=== PATIENT | female | born 1970 | race Two or more races ===

== ENCOUNTER 2017-02-25 06:55 | Inpatient (IN) | payer OTHER ==
[~2017-02-25] VITALS: Ht 147.3 cm; Wt 50.0 kg
[2017-02-25] VITALS (23 sets, daily range): BP systolic 101–136; BP diastolic 53–75; PULSE 60–93; RESP 16–20; Ht 147.3 cm; Wt 50.0 kg
[2017-02-25] MEDS ORDERED: VANCOMYCIN 1 GM (PMX) 250 ML IVPB ONE (07:00)
[2017-02-25] MEDS ORDERED: CEFAZOLIN 2 GM/50 ML (PMX) 50 ML IVPB ONE (07:00)
[2017-02-25] MEDS ORDERED: PROPOFOL 200 MG INJ ONE (07:00)
[2017-02-25] MEDS ORDERED: LACTATED RINGER'S 1,000 ML IV* SCH (07:00)
[2017-02-25] MEDS ORDERED: CLINDAMYCIN 300 MG/D5W (PMX) 50 ML IVPB ONE (07:00)
[2017-02-25] MEDS ORDERED: SOD CHLORIDE 0.9% 1,000 ML IV SCH (07:00)
[2017-02-25] MEDS ORDERED: AMPICILLIN/SULB 3 GM/NS (PMX) 100 ML IVPB ONE (07:00)
[2017-02-25] MEDS ORDERED: metroNIDAZOLE 500 MG/NS (PMX) 100 ML IVPB ONE (07:00)
[2017-02-25] MEDS ORDERED: CIPROFLOXACIN 400MG/D5W 200 ML IVPB ONE (07:00)
[2017-02-25] MEDS ORDERED: CEFAZOLIN 1 GM/50 ML (PMX) 50 ML IVPB ONE (07:00)
[2017-02-25] MEDS ORDERED: ACETAMINOPHEN 1000MG/100ML IV 100 ML ONE (08:15)
[2017-02-25] MEDS ORDERED: LIDOCAINE 100 MG SYRINGE ONE (08:15)
[2017-02-25] MEDS ORDERED: ONDANSETRON 4 MG INJ ONE (08:16)
[2017-02-25] MEDS ORDERED: FAMOTIDINE 20 MG INJ ONE (08:16)
[2017-02-25] MEDS ORDERED: ROCURONIUM 50 MG INJ ONE (08:16)
[2017-02-25] MEDS ORDERED: DEXAMETHASONE 4 MG/ML 1 ML INJ ONE (08:16)
[2017-02-25] MEDS ORDERED: MIDAZOLAM 1 MG/ML 2 ML INJ ONE (08:16)
[2017-02-25] MEDS ORDERED: HYDROmorphONE 2 MG/ML SYG ONE (08:16)
[2017-02-25] MEDS ORDERED: POLYMYXIN/BACITRACIN 1L IRRIG ONE (09:05)
[2017-02-25] MEDS ORDERED: VANCOMYCIN 1 GM INJ ONE (09:05)
[2017-02-25] MEDS ORDERED: SUGAMMADEX SODIUM 200 MG/2 ML VIAL IV ONE (10:03)
[2017-02-25] MEDS ORDERED: MEPERIDINE 25 MG INJ IV PRN (10:30)
[2017-02-25] MEDS ORDERED: HYDROmorphONE (0.2 MG/ML) 10ML SYG IV PRN ×3 (10:30)
[2017-02-25] MEDS ORDERED: ONDANSETRON 4 MG INJ IV PRN ×2 (10:30→15:00)
[2017-02-25] MEDS ORDERED: METOCLOPRAMIDE 10 MG INJ IV PRN (10:30)
--- NOTE | 2017-02-25 11:08 | OPR ---
Date/Time of Note Date/Time of Note DATE: 02/25/17 TIME: 11:04 Operative Report Preoperative Diagnosis Large ventral hernia Postoperative Diagnosis Same Operation/Procedure Performed Abdominal exploration lysis of adhesions and repair of ventral hernia Surgeon: CHACE LOVING MD assistant store manager: MARTIN EASLEY MD Anesthesia: general Estimated Blood Loss: 10 - 50 ml's Specimens Hernia sac CHACE LOVING MD Feb 25, 2017 11:08
[2017-02-25] MEDS ORDERED: HYDROmorphONE 1 MG/ML SYG IV SCH ×2 (12:30→14:00)
[2017-02-25] MEDS: IBUPROFEN 400 MG TAB PO PRN (12:30)
--- NOTE | 2017-02-25 12:56 | OPR ---
DATE OF OPERATION: 02/25/2017 PREOPERATIVE DIAGNOSIS: Ventral hernia. POSTOPERATIVE DIAGNOSIS: Ventral hernia. PROCEDURES: 1. Exploratory laparotomy. 2. Ventral herniorrhaphy. 3. Local adjacent tissue transfer. ANESTHESIA: General. ANESTHESIOLOGIST: Nurse infantry officer, . SURGEON: Barry Manning MD AUTO PARTS COUNTER PERSON: Dr. Colon. INDICATIONS FOR PROCEDURE: Patient is a 46-year-old female who previously had undergone a laparoscopic cholecystectomy at another institution. She developed a very large supraumbilical hernia at the presumed trocar site. CT scan demonstrated that it contained portions of the transverse colon. She was counseled as to risks versus benefits of repair. She consented and was scheduled for surgery. OPERATIVE PROCEDURE: Patient was brought to operating room, placed under general endotracheal tube anesthesia. The abdomen was prepped and draped in the usual sterile fashion. A midline incision was made directly over the hernia from a point approximately 4 cm above the umbilicus, around the left side of the umbilicus to a point approximately 2 cm below the umbilicus. Subcutaneous tissue was dissected with cautery. A large hernia sac was identified. The sac was meticulously dissected down to its base with the abdominal wall fascia. The sac was opened. Incarcerated bowel was easily returned to the abdominal domain. The sac was then transected and sent for permanent pathologic analysis. Dr. Manning inspected the defect and deemed suitable for primary repair. It was repaired in transverse fashion using 0 looped Prolene sutures. The dermis of the umbilicus was then tacked to the abdominal wall, also with the Prolene suture to recreate an inverted umbilicus. The wound was irrigated. There was a lot of tension on the wound. Therefore, Dr. Manning made the decision to mobilize skin both on the left and right side as well as superiorly and inferiorly to create skin flaps. The flaps were then rotated together and held in place with towel clips, and final approximation of the skin incision took place with 2-0 nylon sutures in vertical mattress fashion. Patient tolerated the procedure well. The estimated blood loss was 20 mL. There were no complications and the patient was transported in stable condition to the recovery room. Dictated By: Barry Manning MD /shani/ec /Document#: [id number]
[2017-02-25] MEDS: HYDROmorphONE 0.2 MG/ML PCA IV SCH ×2 (15:26→21:49)
[2017-02-25] MEDS: SOD CHLORIDE 0.9% 1,000 ML IV SCH (18:48)
[2017-02-25] MEDS ORDERED: DIPHENHYDRAMINE 25 MG CAP PO PRN (19:00)
[2017-02-26] MEDS: SOD CHLORIDE 0.9% 1,000 ML IV SCH ×2 (02:18→17:13)
[2017-02-26] MEDS: HYDROmorphONE 0.2 MG/ML PCA IV SCH ×2 (06:06→16:18)
[2017-02-26] MEDS: IBUPROFEN 400 MG TAB PO PRN (08:56)
[2017-02-26 08:57] VITALS: BP 103/58; RESP 16
--- NOTE | 2017-02-26 12:43 | HP ---
Date/Time of Note Date/Time of Note DATE: 02/26/17 TIME: 12:42 Assessment/Plan VTE Prophylaxis VTE Prophylaxis Intervention: other Lines/Catheters IV [facility] Peripheral IV Urinary Cath still in place: No Assessment/Plan Chief Complaint/Hosp Course 1) ventral hernia - s/p repair 2) hypertension - monitor Problems: HPI/ROS Admit Date/Time Admit Date/Time Feb 25, 2017 at 13:53 Hx of Present Illness Patient with hypertension comes in with vental hernia. Patient underwent repair of hernia and is now post op. PMH/Family/Social Past Medical History Medical History: hypertension Past Surgical History Past Surgical Hx: no surgical history Social History Smoking Status: Never smoker Exam/Review of Systems Vital Signs Vitals Vital Signs Date Time Temp Pulse Resp B/P Pulse Ox O2 Delivery O2 Flow Rate FiO2 02/26/17 08:57 100.0 81 16 103/58 98 02/25/17 17:45 Room Air Intake and Output 02/25/17 02/25/17 02/26/17 15:00 23:00 07:00 Intake Total 1020 ml 500 ml 1365 ml Output Total 10 ml 450 ml 450 ml Balance 1010 ml 50 ml 915 ml Exam Constitutional: well developed Head: atraumatic, normocephalic Neck: supple Respiratory: clear to auscultation Cardiovascular: regular rate and rhythm Gastrointestinal: non-tender, soft Extremities: normal pulses Medications Medications Current Medications Ibuprofen (Motrin) 400 mg Q6H PRN PO PAIN OR TEMP ABOVE 38C Last administered on 02/26/17 08:56; Admin Dose 400 MG; Start 02/25/17 at 12:30 Hydromorphone HCl (Dilaudid AIRCRAFT INSPECTION RECORD CLERK) 0.5 MG/HR CONTINUOUS RATE ... Q4PCA IV Last administered on 02/26/17 06:06; Admin Dose 6 MG; Start 02/25/17 at 15:00 Ondansetron HCl 4 mg 4 mg Q4H PRN IV NAUSEA AND/OR VOMITING Last administered on 02/25/17 21:55; Admin Dose 4 MG; Start 02/25/17 at 15:00 Sodium Chloride (NS) 1,000 ml @ 75 mls/hr [id number] IV Last administered on 02:18; Admin Dose 75 MLS/HR; Start 02/25/17 at 17:30 Diphenhydramine HCl (Benadryl) 25 mg Q6H PRN PO ITCHING Last administered on t 18:59; Admin Dose 25 MG; Start 02/25/17 at 19:00 MERVIN BRIGGS Feb 26, 2017 12:43
[2017-02-26 14:33] VITALS: BP 106/63; RESP 19
--- NOTE | 2017-02-26 15:07 | PN ---
Date/Time of Note Date/Time of Note DATE: 02/26/17 TIME: 15:02 Assessment/Plan VTE Prophylaxis VTE Prophylaxis Intervention: SCD's Lines/Catheters IV Catheter Type (from Nrs): Peripheral IV Urinary Cath still in place: No Assessment/Plan Assessment/Plan 46-year-old female postop day #1 status post laparotomy repair of the ventral hernia. Status post operation patient has been in a lot of pain so much that required Dilaudid LICENSED INVESTMENT SALES ASSISTANT. Barely has been out of bed. Patient states that the patient has peptic ulcer. Plan,: We will start patient on Toradol 30 mg IV every 6 hours [id number] for 48 hours. Also will give Protonix 40 mg p.o. every 12 hours. I will check a KUB tomorrow morning to see the status of the bowels. Subjective 24 Hr Interval Summary Free Text/Dictation Complains of abdominal pain and tightness. No nausea no vomiting. Status post laparotomy repair of the ventral hernia. Exam/Review of Systems Vital Signs Vitals Vital Signs Date Time Temp Pulse Resp B/P Pulse Ox O2 Delivery O2 Flow Rate FiO2 02/26/17 14:33 98.0 75 19 106/63 98 02/25/17 17:45 Room Air Intake and Output 02/25/17 02/25/17 02/26/17 15:00 23:00 07:00 Intake Total 1020 ml 500 ml 1365 ml Output Total 10 ml 450 ml 450 ml Balance 1010 ml 50 ml 915 ml Exam Postop day #1. Alert awake oriented 3. Complains of too much abdominal pain. She is on LICENSED INVESTMENT SALES ASSISTANT Dilaudid. No BMP has passed a minimal amount of flatus. Abdomen is slightly distended tender at the site of the operation. Bowel sounds 2+/4+. Legs no calf tenderness. Results Results 24 hrs Laboratory Tests Test 02/26/17 05:53 Lab Scanned Report LAB Medications Medications Current Medications Ibuprofen (Motrin) 400 mg Q6H PRN PO PAIN OR TEMP ABOVE 38C Last administered on 02/26/17 08:56; Admin Dose 400 MG; Start 02/25/17 at 12:30 Hydromorphone HCl (Dilaudid LICENSED INVESTMENT SALES ASSISTANT) 0.0 MG/HR CONTINUOUS RATE ... Q4PCA IV Last administered on 02/26/17 06:06; Admin Dose 6 MG; Start 02/25/17 at 15:00 Ondansetron HCl 4 mg 4 mg Q4H PRN IV NAUSEA AND/OR VOMITING Last administered on 02/25/17 21:55; Admin Dose 4 MG; Start 02/25/17 at 15:00 Sodium Chloride (NS) 1,000 ml @ 75 mls/hr [id number] IV Last administered on 02:18; Admin Dose 75 MLS/HR; Start 02/25/17 at 17:30 Diphenhydramine HCl (Benadryl) 25 mg Q6H PRN PO ITCHING Last administered on 18:59; Admin Dose 25 MG; Start 02/25/17 at 19:00 MARTIN EASLEY MD Feb 26, 2017 15:07
[2017-02-26] MEDS ORDERED: IBUPROFEN 400 MG TAB PO SCH (16:30)
[2017-02-26] MEDS ORDERED: KETOROLAC 30 MG INJ IV SCH (16:30)
[2017-02-26] MEDS: PANTOPRAZOLE 40 MG INJ IV SCH (17:12)
[2017-02-26] MEDS: KETOROLAC 30 MG INJ IV SCH ×2 (17:12→23:34)
[2017-02-26 20:40] VITALS: BP 118/61; RESP 20
[2017-02-27 02:28] VITALS: BP 124/69; RESP 18
[2017-02-27 04:45] VITALS: RESP 18
[2017-02-27] MEDS: SOD CHLORIDE 0.9% 1,000 ML IV SCH ×2 (05:49→22:50)
[2017-02-27] MEDS: PANTOPRAZOLE 40 MG INJ IV SCH ×2 (05:49→17:48)
[2017-02-27] MEDS: KETOROLAC 30 MG INJ IV SCH ×2 (05:52→12:28)
[2017-02-27 07:00] VITALS: BP 112/67; RESP 18
--- NOTE | 2017-02-27 10:11 | PN ---
Date/Time of Note Date/Time of Note DATE: 02/27/17 TIME: 10:10 Assessment/Plan VTE Prophylaxis VTE Prophylaxis Intervention: other Lines/Catheters IV Catheter Type (from Nrs): Peripheral IV Urinary Cath still in place: No Assessment/Plan Chief Complaint/Hosp Course 1) ventral hernia - s/p repair 2) hypertension - monitor Problems: Subjective 24 Hr Interval Summary Free Text/Dictation Patient is still complaining of fair amount of pain in right side of abdomen Exam/Review of Systems Vital Signs Vitals Vital Signs Date Time Temp Pulse Resp B/P Pulse Ox O2 Delivery O2 Flow Rate FiO2 02/27/17 07:00 98.6 75 18 112/67 96 02/27/17 04:45 Room Air Intake and Output 02/26/17 02/26/17 02/27/17 15:00 23:00 07:00 Intake Total 400 ml 1400 ml Output Total 800 ml Balance -400 ml 1400 ml Exam Constitutional: well developed Head: atraumatic, normocephalic Neck: supple Respiratory: clear to auscultation Cardiovascular: regular rate and rhythm Gastrointestinal: soft, tender Extremities: normal pulses Medications Medications Current Medications Hydromorphone HCl (Dilaudid MARKETING ACCOUNT EXECUTIVE) 0.0 MG/HR CONTINUOUS RATE ... Q4PCA IV Last administered on 02/26/17 16:18; Admin Dose 6 MG; Start 02/25/17 at 15:00 Ondansetron HCl 4 mg 4 mg Q4H PRN IV NAUSEA AND/OR VOMITING Last administered on 02/25/17 21:55; Admin Dose 4 MG; Start 02/25/17 at 15:00 Sodium Chloride (NS) 1,000 ml @ 75 mls/hr [id number] IV Last administered on 05:49; Admin Dose 75 MLS/HR; Start 02/25/17 at 17:30 Diphenhydramine HCl (Benadryl) 25 mg Q6H PRN PO ITCHING Last administered on 18:59; Admin Dose 25 MG; Start 02/25/17 at 19:00 Pantoprazole (Protonix Iv) 40 mg BID@06,18 IV Last administered on 02/27/17 05: 49; Admin Dose 40 MG; Start 02/26/17 at 18:00 Ketorolac Tromethamine (Toradol) 30 mg Q6 IV Last administered on 02/27/17t 05: 52; Admin Dose 30 MG; Start 02/26/17 at 17:00; Stop 03/01/17 at 16:59 MERVIN BRIGGS Feb 27, 2017 10:11
--- NOTE | 2017-02-27 11:28 | RADRPT ---
PROCEDURE: Abdominal radiograph. CLINICAL INDICATION: Postoperative distension. COMPARISON: None relevant listed . TECHNIQUE: Supine portable AP abdomen x-ray. FINDINGS: The visualized lung bases are clear. No distended loops of bowel or fluid levels. There is a nonobstructive bowel pattern. No suspicious calcifications. No suspicious bone abnormality. IMPRESSION: No bowel obstruction identified. RPTAT: PP Physician Rolando Date Time Electronically viewed and signed by Physician Rolando on 02/27/2017 11:27 LG/
--- NOTE | 2017-02-27 15:08 | PN ---
Date/Time of Note Date/Time of Note DATE: 02/27/17 TIME: 15:02 Assessment/Plan VTE Prophylaxis VTE Prophylaxis Intervention: ambulation Lines/Catheters IV [facility]ter Type (from [facility]): Peripheral IV Urinary Cath still in place: No Assessment/Plan Assessment/Plan 46-year-old female status post repair of the ventral incisional hernia 2 days ago. Patient continues to complain of left flank pain as she has had before operation. Also states that she has had EGD done 2 years ago and she was told that she has stomach ulcer. She states that has had left flank pain for about a year or so. No investigation has been done. Now it is tender on pressure in the left flank area. Plan: We will get a CBC and CMP tomorrow the urinalysis. We will give the patient Fleet Enema to clear her rectum. We will get a CT scan of abdomen and pelvis with Gastrografin tomorrow. We will continue patient on proton pump inhibitors. Subjective 24 Hr Interval Summary Free Text/Dictation Postop day #2. Continues to complain of left flank pain. States that she has had left flank pain for about a year before this operation. Seen the pain is the same. She denies constipation or diarrhea. She denies vomiting. Question of nausea. Has been out of bed to urinate. No bowel movement in the hospital. Exam/Review of Systems Vital Signs Vitals Vital Signs Date Time Temp Pulse Resp B/P Pulse Ox O2 Delivery O2 Flow Rate FiO2 02/27/17 13:00 18 02/27/17 07:00 98.6 75 112/67 96 02/27/17 04:45 Room Air Intake and Output 02/26/17 02/26/17 02/27/17 15:00 23:00 07:00 Intake Total 400 ml 1400 ml Output Total 800 ml Balance -400 ml 1400 ml Exam Postop day #2. Alert awake oriented 3. Difficulty ambulating. Back and forth and up and down with the help of the family is doing that. Vital sign is stable. Heart regular lungs clear. Abdomen is mildly distended. Bowel sound is hypoactive. Tenderness on left flank upon deep pressure. KUB shows a couple of the small bowel loops in the left upper quadrant. KUB shows a stone in the rectum. Medications Medications Current Medications Hydromorphone HCl (Dilaudid ADVANCED NURSING PROFESSOR) 0.0 MG/HR CONTINUOUS RATE ... Q4PCA IV Last administered on 02/26/17 16:18; Admin Dose 6 MG; Start 02/25/17 at 15:00 Ondansetron HCl 4 mg 4 mg Q4H PRN IV NAUSEA AND/OR VOMITING Last administered on 02/25/17 21:55; Admin Dose 4 MG; Start 02/25/17 at 15:00 Sodium Chloride (NS) 1,000 ml @ 75 mls/hr [id number] IV Last administered on 05:49; Admin Dose 75 MLS/HR; Start 02/25/17 at 17:30 Diphenhydramine HCl (Benadryl) 25 mg Q6H PRN PO ITCHING Last administered on 18:59; Admin Dose 25 MG; Start 02/25/17 at 19:00 Pantoprazole (Protonix Iv) 40 mg BID@06,18 IV Last administered on 02/27/17 05: 49; Admin Dose 40 MG; Start 02/26/17 at 18:00 Ketorolac Tromethamine (Toradol) 30 mg Q6 IV Last administered on 02/27/17 12: 28; Admin Dose 30 MG; Start 02/26/17 at 17:00; Stop 03/01/17 at 16:59 MARTIN EASLEY MD Feb 27, 2017 15:08
[2017-02-27] MEDS ORDERED: NA PHOSPHATE/BIPHOS 133 ML ENEMA PR ONE (15:30)
[2017-02-27] MEDS ORDERED: IOHEXOL 14.3 MG(I)/ML (ADULT) BTL PO ONE (15:30)
[2017-02-27 19:11] VITALS: BP 129/71; RESP 22
[2017-02-27 19:24] LABS: ADD UMIC YES; UR ASCORBIC ACID NEGATIVE (NEGATIVE); UR BACTERIA FEW /HPF (NONE SEEN); UR BILIRUBIN (Dip) NEGATIVE (NEGATIVE); UR BLOOD (Dip) NEGATIVE (NEGATIVE); UR CLARITY CLEAR (CLEAR); UR COLOR STRAW (YELLOW); UR GLUCOSE (Dip) NEGATIVE (NEGATIVE); UR KETONES (Dip) NEGATIVE (NEGATIVE); UR LEUKOCYTE ESTERASE (Dip) 3+ Leu/ul (NEGATIVE); UR NITRITE (Dip) NEGATIVE (NEGATIVE); UR RBC 1 /HPF (0-5); UR SPECIFIC GRAVITY (Dip) 1.004 (1.003-1.030); UR TOTAL PROTEIN (Dip) NEGATIVE (NEGATIVE); UR UROBILINOGEN (Dip) NEGATIVE (NEGATIVE)
[2017-02-27] MEDS: HYDROmorphONE 0.2 MG/ML PCA IV SCH (20:19)
[2017-02-28 02:45] VITALS: BP 121/63; RESP 22
[2017-02-28 05:34] LABS: BASOPHIL # 0.1 10^3/ul (0.0-0.1); BASOPHILS % 0.6 % (0.0-2.0); EOSINOPHILS # 0.1 10^3/ul (0.0-0.5); EOSINOPHILS % 1.4 % (0.0-7.0); HEMOGLOBIN 13.2 g/dl (12.0-16.0); LYMPHOCYTES # 2.6 10^3/ul (0.8-2.9); LYMPHOCYTES % 33.1 % (15.0-51.0); MEAN CORPUSCULAR HEMOGLOBIN 31.8 pg (29.0-33.0); MEAN CORPUSCULAR HGB CONC 34.7 g/dl (32.0-37.0); MEAN CORPUSCULAR VOLUME 91.6 fl (82.0-101.0); MEAN PLATELET VOLUME 10.9 fl (7.4-10.4); MONOCYTE # 0.8 10^3/ul (0.3-0.9); MONOCYTES % 10.1 % (0.0-11.0); NEUTROPHIL # 4.3 10^3/ul (1.6-7.5); NEUTROPHILS % 54.5 % (39.0-77.0); PLATELET COUNT 182 10^3/UL (140-415); RED BLOOD COUNT 4.15 10^6/ul (4.20-5.40); WHITE BLOOD COUNT 7.8 10^3/ul (4.8-10.8)
[2017-02-28] MEDS: PANTOPRAZOLE 40 MG INJ IV SCH (05:39)
[2017-02-28 06:46] LABS: ALBUMIN 3.2 g/dl (3.3-4.9); BILIRUBIN,INDIRECT 0.4 mg/dl (0-1.1); BILIRUBIN,TOTAL 0.4 mg/dl (0.2-1.3); CALCIUM 8.5 mg/dl (8.4-10.2); CREATININE 0.65 mg/dl (0.44-1.00); POTASSIUM 4.3 mmol/L (3.5-5.1); TOTAL PROTEIN 6.4 g/dl (6.1-8.1)
[2017-02-28] MEDS: SOD CHLORIDE 0.9% 1,000 ML IV SCH ×3 (06:57→21:15)
[2017-02-28 08:00] VITALS: BP 111/64; RESP 16
--- NOTE | 2017-02-28 12:08 | PN ---
Date/Time of Note Date/Time of Note DATE: 02/28/17 TIME: 12:07 Assessment/Plan VTE Prophylaxis VTE Prophylaxis Intervention: other Lines/Catheters IV Catheter Type (from Nrs): Peripheral IV Urinary Cath still in place: No Assessment/Plan Chief Complaint/Hosp Course 1) ventral hernia - s/p repair 2) hypertension - monitor Problems: Subjective 24 Hr Interval Summary Free Text/Dictation Patient is still having a considerable amount of pain, still on MASCARA MOLDER Exam/Review of Systems Vital Signs Vitals Vital Signs Date Time Temp Pulse Resp B/P Pulse Ox O2 Delivery O2 Flow Rate FiO2 02/28/17 09:00 18 02/28/17 08:00 98.4 71 111/64 97 02/27/17 04:45 Room Air Intake and Output 02/27/17 02/27/17 02/28/17 14:59 22:59 06:59 Intake Total 2125 ml 1560 ml Output Total 1200 ml 1150 ml Balance 925 ml 410 ml Exam Constitutional: well developed Head: atraumatic, normocephalic Neck: supple Respiratory: clear to auscultation Cardiovascular: regular rate and rhythm Gastrointestinal: soft, tender Extremities: normal pulses Results Result Diagram: 02/28/17 0449 02/28/17 0449 Results 24 hrs Laboratory Tests Test 02/27/17 17:09 02/28/17 04:49 Urine Color STRAW Urine Clarity CLEAR Urine pH 8.0 Urine Specific Brogan 1.004 Urine Ketones NEGATIVE Urine Nitrite NEGATIVE Urine Bilirubin NEGATIVE Urine Urobilinogen NEGATIVE Urine Leukocyte Esterase 3+ H Urine Microscopic RBC 1 Urine Microscopic WBC 5 Urine Bacteria FEW A Urine Hemoglobin NEGATIVE Urine Glucose NEGATIVE Urine Total Protein NEGATIVE White Blood Count 7.8 Red Blood Count 4.15 L Hemoglobin 13.2 Hematocrit 38.0 Mean Corpuscular Volume 91.6 Mean Corpuscular Hemoglobin 31.8 Mean Corpuscular Hemoglobin Concent 34.7 Red Cell Distribution Width 12.0 Platelet Count 182 Mean Platelet Volume 10.9 H Neutrophils % 54.5 Lymphocytes % 33.1 Monocytes % 10.1 Eosinophils % 1.4 Basophils % 0.6 Nucleated Red Blood Cells % 0.0 Neutrophils # 4.3 Lymphocytes # 2.6 Monocytes # 0.8 Eosinophils # 0.1 Basophils # 0.1 Nucleated Red Blood Cells # 0.0 Sodium Level 140 Potassium Level 4.3 Chloride Level 100 Carbon Dioxide Level 28 Anion Gap 16 Blood Urea Nitrogen 6 L Creatinine 0.65 Glucose Level 81 Calcium Level 8.5 Total Bilirubin 0.4 Direct Bilirubin 0.00 Indirect Bilirubin 0.4 Aspartate Amino Transf (AST/SGOT) 40 Alanine Aminotransferase (ALT/SGPT) 60 Alkaline Phosphatase 74 Total Protein 6.4 Albumin 3.2 L Globulin 3.20 Albumin/Globulin Ratio 1.00 Medications Medications Current Medications Hydromorphone HCl (Dilaudid MASCARA MOLDER) 0.0 MG/HR CONTINUOUS RATE ... Q4PCA IV Last administered on 02/27/17 20:19; Admin Dose 6 MG; Start 02/25/17 at 15:00 Ondansetron HCl 4 mg 4 mg Q4H PRN IV NAUSEA AND/OR VOMITING Last administered on 02/25/17 21:55; Admin Dose 4 MG; Start 02/25/17 at 15:00 Sodium Chloride (NS) 1,000 ml @ 75 mls/hr [id number] IV Last administered on 06:57; Admin Dose 75 MLS/HR; Start 02/25/17 at 17:30 Diphenhydramine HCl (Benadryl) 25 mg Q6H PRN PO ITCHING Last administered on 18:59; Admin Dose 25 MG; Start 02/25/17 at 19:00 Pantoprazole (Protonix Iv) 40 mg BID@06,18 IV Last administered on 02/28/17 05: 39; Admin Dose 40 MG; Start 02/26/17 at 18:00 MERVIN BRIGGS Feb 28, 2017 12:08
[2017-02-28] MEDS ORDERED: traMADol 50 MG TAB PO PRN (13:00)
[2017-02-28] MEDS ORDERED: HYDROCODONE/APAP (5/325) TAB PO PRN ×2 (13:00)
[2017-02-28] MEDS: traMADol 50 MG TAB PO PRN ×2 (13:33→21:34)
[2017-02-28 14:00] VITALS: BP 140/71; RESP 18
[2017-02-28] MEDS: PANTOPRAZOLE (EC) 40 MG TAB PO SCH (17:30)
--- NOTE | 2017-02-28 18:51 | PN ---
Date/Time of Note Date/Time of Note DATE: 02/28/17 TIME: 18:43 Assessment/Plan VTE Prophylaxis VTE Prophylaxis Intervention: ambulation Lines/Catheters IV [facility] (from [facility]): Peripheral IV Urinary Cath still in place: No Assessment/Plan Assessment/Plan 46-year-old female status post laparotomy and repair of the ventral incisional hernia without mesh. First postop day patient's suffering of a lot of pain requiring narcotics the TREE CLIMBER and also on the second day continue TREE CLIMBER. Last night had a bowel movement today feels slightly better. Plan: I am planning to decrease the frequency of the TREE CLIMBER and decrease the amount of each dose. I will start patient on tramadol 50 mg p.o. every 8 hours. The planning to possibly discharge her home on Saturday and noted most Saturday. Subjective 24 Hr Interval Summary Free Text/Dictation Surgical follow-up by Dr. Easley. Postop day #3. Status post laparotomy and repair of ventral incisional hernia by Dr. Basurto. Apparently patient had a bowel movement last night. Patient states that the pain is a slightly better today. Has been out of bed and walked around. I Had ordered a CT scan of the abdomen and pelvis with Gastrografin but apparently patient has refused to take the fluid for contrast p.o. for the CT scan patient wants to see Dr. Basurto. Exam/Review of Systems Vital Signs Vitals Vital Signs Date Time Temp Pulse Resp B/P Pulse Ox O2 Delivery O2 Flow Rate FiO2 02/28/17 14:00 97.7 72 18 140/71 93 02/27/17 04:45 Room Air Intake and Output 02/27/17 02/27/17 02/28/17 15:00 23:00 07:00 Intake Total 2125 ml 1560 ml Output Total 1200 ml 1150 ml Balance 925 ml 410 ml Exam Patient is alert awake oriented 3 sitting down on the chair. Vital sign is stable no fever no nausea no vomiting. I had the patient lay down on the bed and examined the patient abdomen is not distended is soft bowel sound is normal. Mild to moderate tenderness on pressure. No calf tenderness. Results Result Diagram: 02/28/17 0449 02/28/17 0449 Results 24 hrs Laboratory Tests Test 02/28/17 04:49 White Blood Count 7.8 Red Blood Count 4.15 L Hemoglobin 13.2 Hematocrit 38.0 Mean Corpuscular Volume 91.6 Mean Corpuscular Hemoglobin 31.8 Mean Corpuscular Hemoglobin Concent 34.7 Red Cell Distribution Width 12.0 Platelet Count 182 Mean Platelet Volume 10.9 H Neutrophils % 54.5 Lymphocytes % 33.1 Monocytes % 10.1 Eosinophils % 1.4 Basophils % 0.6 Nucleated Red Blood Cells % 0.0 Neutrophils # 4.3 Lymphocytes # 2.6 Monocytes # 0.8 Eosinophils # 0.1 Basophils # 0.1 Nucleated Red Blood Cells # 0.0 Sodium Level 140 Potassium Level 4.3 Chloride Level 100 Carbon Dioxide Level 28 Anion Gap 16 Blood Urea Nitrogen 6 L Creatinine 0.65 Glucose Level 81 Calcium Level 8.5 Total Bilirubin 0.4 Direct Bilirubin 0.00 Indirect Bilirubin 0.4 Aspartate Amino Transf (AST/SGOT) 40 Alanine Aminotransferase (ALT/SGPT) 60 Alkaline Phosphatase 74 Total Protein 6.4 Albumin 3.2 L Globulin 3.20 Albumin/Globulin Ratio 1.00 Medications Medications Current Medications Hydromorphone HCl (Dilaudid TREE CLIMBER) 0.0 MG/HR CONTINUOUS RATE ... Q4PCA IV Last administered on 02/27/17 20:19; Admin Dose 6 MG; Start 02/25/17 at 15:00 Ondansetron HCl 4 mg 4 mg Q4H PRN IV NAUSEA AND/OR VOMITING Last administered on 02/25/17 21:55; Admin Dose 4 MG; Start 02/25/17 at 15:00 Sodium Chloride (NS) 1,000 ml @ 75 mls/hr [id number] IV Last administered on 06:57; Admin Dose 75 MLS/HR; Start 02/25/17 at 17:30 Diphenhydramine HCl (Benadryl) 25 mg Q6H PRN PO ITCHING Last administered on 18:59; Admin Dose 25 MG; Start 02/25/17 at 19:00 Acetaminophen/ Hydrocodone Bitart ([place] (5/325)) 1 tab Q4H PRN PO PAIN LEVEL 1 -5; Start 02/28/17 at 13:00 Acetaminophen/ Hydrocodone Bitart ([place] (5/325)) 2 tab Q4H PRN PO PAIN LEVEL 6 -10; Start 02/28/17 at 13:00 Tramadol HCl (Ultram) 50 mg Q6H PRN PO PAIN Last administered on 02/28/17 13:33 ; Admin Dose 50 MG; Start 02/28/17 at 13:00 Pantoprazole (Protonix Tab) 40 mg BID@,18 PO Last administered on 02/28/17 17 :30; Admin Dose 40 MG; Start 02/28/17 at 18:00 MARTIN EASLEY MD Feb 28, 2017 18:50
[2017-02-28 20:27] VITALS: BP 132/79; RESP 18
[2017-03-01 00:51] VITALS: BP 119/65; RESP 19
[2017-03-01] MEDS: PANTOPRAZOLE (EC) 40 MG TAB PO SCH (06:17)
[2017-03-01] MEDS: traMADol 50 MG TAB PO PRN ×2 (06:19→12:31)
[2017-03-01 07:00] VITALS: BP 111/64; RESP 20
[2017-03-01] MEDS: SOD CHLORIDE 0.9% 1,000 ML IV SCH (11:50)
[2017-03-01 14:00] VITALS: BP 119/65; RESP 20
--- NOTE | 2017-03-01 14:06 | DS ---
Date/Time of Note Date/Time of Note DATE: 03/01/17 TIME: 14:05 Discharge Summary Admission/Discharge Info Admit Date/Time Feb 25, 2017 at 13:53 Discharge Date/Time 03/01/17 Patient Condition: Fair Consults surgery Procedures hernia repair Hx of Present Illness Patient with hypertension comes in with vental hernia. Patient underwent repair of hernia and is now post op. Hospital Course Patient came in with a ventral hernia. She underwent repair. Patient slowly improved and when stable was sent home. 1) ventral hernia - s/p repair 2) hypertension - monitor Home Meds No Active Prescriptions or Reported Meds Primary Care Provider Not On Staff Doctor MERVIN BRIGGS Mar 01, 2017 14:06
--- NOTE | 2017-03-01 14:16 | PN ---
Date/Time of Note Date/Time of Note DATE: 03/01/17 TIME: 14:03 Assessment/Plan VTE Prophylaxis VTE Prophylaxis Intervention: ambulation Lines/Catheters IV Catheter Type (from Nrsg): Peripheral IV Urinary Cath still in place: No Assessment/Plan Assessment/Plan POD#4 S/P ventral hernia repair pt has been claiming too much abdominap pain, to some extent was relievd by passin gas and BM. otherwise pt stable. to discharge her today on ULTRUM 50 mg po q 6hr. F.U. by Dr. Manning in his office Subjective 24 Hr Interval Summary Free Text/Dictation Pod#4. states that todat has much more pain in right up. quadrant comparing to yesterday. has past a lot of flatus but no B.M. today. has not used crab catcher .but ULTRUM, q 6hr. Exam/Review of Systems Vital Signs Vitals Vital Signs Date Time Temp Pulse Resp B/P Pulse Ox O2 Delivery O2 Flow Rate FiO2 03/01/17 09:00 18 03/01/17 07:00 98.9 63 111/64 97 02/27/17 04:45 Room Air Intake and Output 02/28/17 02/28/17 03/01/17 15:00 23:00 07:00 Intake Total 1785 ml 1301 ml Balance 1785 ml 1301 ml Exam NO fever, no N., No Vomiting, positive Flatus Abdomen is soft, but moderatly distended with gas. bowel sounds normal Results Result Diagram: 02/28/17 0449 02/28/17 0449 Medications Medications Current Medications Hydromorphone HCl (Dilaudid TUBE SKIVER) 0.0 MG/HR CONTINUOUS RATE ... Q4PCA IV Last administered on 02/27/17 20:19; Admin Dose 6 MG; Start 02/25/17 at 15:00 Ondansetron HCl 4 mg 4 mg Q4H PRN IV NAUSEA AND/OR VOMITING Last administered on 02/25/17 21:55; Admin Dose 4 MG; Start 02/25/17 at 15:00 Sodium Chloride (NS) 1,000 ml @ 75 mls/hr [id number] IV Last administered on 11:50; Admin Dose 75 MLS/HR; Start 02/25/17 at 17:30 Diphenhydramine HCl (Benadryl) 25 mg Q6H PRN PO ITCHING Last administered on 18:59; Admin Dose 25 MG; Start 02/25/17 at 19:00 Acetaminophen/ Hydrocodone Bitart ([place] (5/325)) 1 tab Q4H PRN PO PAIN LEVEL 1 -5; Start 02/28/17 at 13:00 Acetaminophen/ Hydrocodone Bitart ([place] (5/325)) 2 tab Q4H PRN PO PAIN LEVEL 6 -10; Start 02/28/17 at 13:00 Tramadol HCl (Ultram) 50 mg Q6H PRN PO PAIN Last administered on 03/01/17 12:31 ; Admin Dose 50 MG; Start 02/28/17 at 13:00 Pantoprazole (Protonix Tab) 40 mg BID@,18 PO Last administered on 03/01/17 06 :17; Admin Dose 40 MG; Start 02/28/17 at 18:00 MARTIN EASLEY MD Mar 01, 2017 14:15
== END 2017-03-01 17:45 | disposition home or self-care (01) | DRG 355 ==
LOC: SDS 06:55 → MS1 13:53
PROVIDERS: ADMIT Surgery Surgical Oncology; ATTEND Surgery Surgical Oncology
PROC: 0WQF0ZZ Repair Abdominal Wall, Open Approach (ICD-10-PCS; principal; 2017-02-25 09:00)
DX: K43.0 Incisional hernia with obstruction, without gangrene (principal); I10 Essential (primary) hypertension
CPT/HCPCS: 74000; 80053; 81001; 85025; 88302; C9113; J0131; J1100; J1170; J1885; J2001; J2250; J2405; J3370; J7030; Q9967